=== PATIENT | female | born 1950 | race Caucasian/White ===

== ENCOUNTER 2017-08-11 10:42 | Outpatient (CLI) ==
[2017-08-11 11:34] LABS: #Basophils 0.1 thou/uL (0.0-0.2); #Eosinphils 0.3 thou/uL (0.0-0.7); #Lymphocytes 1.9 thou/uL (1.20-3.40); #Monocytes 0.4 thou/uL (0.11-0.59); #Neutrophils 4.2 thou/uL (1.40-6.50); %Basophils 0.9 % (0.0-1.0); %Monocytes 5.1 % (0.0-10.0); %Neutrophils 61.9 % (42.0-75.0); Hemoglobin 13.1 g/dL (12.0-16.0); Mean Corpuscular HGB CONC 32.8 g/dL (32.0-36.0); Mean Corpuscular Hemoglobin 31.9 pg (27.0-31.0); Mean Corpuscular Volume 97.3 fl (81.0-99.0); Mean Platelet Volume 8.9 fL (7.4-10.4); Platelet Count 226 thou/uL (130-400); RBC Distribution Width 12.2 % (11.5-14.5); Red Blood Cell (RBC) Count 4.11 mill/uL (4.20-5.40); White Blood Cell (WBC) Count 6.8 thou/uL (4.8-10.8)
[2017-08-11 11:56] LABS: ALT (SGPT) 23 U/L (8-55); AST (SGOT) 18 U/L (5-34); Albumin 3.8 g/dL (3.4-4.8); Alkaline Phosphatase 82 U/L (40-150); Anion Gap 12 mmol/L (10-20); BUN (Urea Nitrogen) 13 mg/dL (9.8-20.1); Bilirubin, Direct 0.2 mg/dL (0.1-0.3); Bilirubin, Total 0.6 mg/dL (0.2-1.2); Calc. Creatinine Clearance 0 mL/min (70-130); Carbon Dioxide 25 mmol/L (23-31); Cardiac Risk 3.4 (Less than 4.5); Chloride 106 mmol/L (98-107); Cholesterol 249 mg/dl (< 200 Desired); Estimated GFR-MDRD 78; Glucose 96 mg/dL (80-115); HDL Cholesterol 73 mg/dL (>60 Neg Risk); LDL Cholesterol, Calculated 140 mg/dL; Potassium 4.4 mmol/L (3.5-5.1); Protein, Total 6.5 g/dL (6.0-8.3); Sodium 139 mmol/L (136-145); Triglycerides 180 mg/dL (Less than 150)
[2017-08-11 12:03] LABS: Hemoglobin A1c 5.5 % (4.0-6.0)
== END 2017-08-11 10:43 | disposition home or self-care (01) ==
LOC: NAVSJIPCSP 10:42
PROVIDERS: ATTEND Family Medicine
DX: E03.9 Hypothyroidism, unspecified (principal); E78.00 Pure hypercholesterolemia, unspecified; F41.9 Anxiety disorder, unspecified; F51.01 Primary insomnia; I10 Essential (primary) hypertension; Z79.899 Other long term (current) drug therapy
CPT/HCPCS: 36415; 80048; 80061; 80076; 83036; 84443; 85025

== ENCOUNTER 2018-06-12 13:11 | Outpatient (CLI) | payer MEDICARE ==
--- NOTE | 2018-06-12 15:30 | ULT ---
LEFT LOWER EXTREMITY VENOUS DOPPLER: Date: 06/12/18 HISTORY: Left lower extremity swelling and edema for 2 weeks. M79.89, swelling of lower extremity. COMPARISON: None. FINDINGS: Real-time Donovan scale and color Doppler with spectral analysis of the left lower extremity venous sys tem was performed with the linear transducer. The common femoral, femoral, proximal portions of great er saphenous and deep femoral veins, as well as the popliteal and posterior tibial veins were interro gated. Normal flow, augmentation, and compression. No deep venous thrombosis. IMPRESSION: No deep venous thrombosis. POS: [facility]
== END 2018-06-12 13:12 | disposition home or self-care (01) ==
LOC: NAV ULT 13:11
PROVIDERS: ATTEND Family Medicine
DX: M79.89 Other specified soft tissue disorders (principal)